=== PATIENT | female | born 1960 | race Caucasian/White ===

== ENCOUNTER → 2017-06-29 | Outpatient (CLI) | payer BC ==
--- NOTE | 2017-06-30 07:53 | MAMMOGRAPHY REPORT ---
BILATERAL DIGITAL SCREENING MAMMOGRAM TOMOSYNTHESIS WITH CAD: 06/29/2017 TECHNIQUE: Breast tomosynthesis in addition to standard 2D mammography was performed. Current study was also evaluated with a Computer Aided Detection (CAD) system. COMPARISON: Comparison is made to exams dated: 06/28/2016 mammogram, 06/24/2015 mammogram, 06/12/2014 mammogram, 06/06/2013 mammogram, 06/02/2012 mammogram, and 04/30/2011 mammogram - [facility]. BREAST COMPOSITION: The tissue of both breasts is heterogeneously dense, which may obscure small mas ses. FINDINGS: There is a 5 mm asymmetry seen within the right breast middle depth at approximately 9:00, which may represent normal fibroglandular tissue although spot compression tomosynthesis views and p ossible breast ultrasound are recommended further evaluation. The remainder of both breasts are stable compared to prior exams, without suspicious masses, calcific ations, or areas of architectural distortion noted. IMPRESSION: ACR BI-RADS CATEGORY 0: INCOMPLETE EVALUATION: NEED ADDITIONAL IMAGING EVALUATION Right breast asymmetry, for which additional imaging evaluation is recommended. The patient will be called to schedule an appointment. Approximately 10% of breast cancers are not detected with mammography. A negative mammographic report should not delay biopsy if a clinically suggestive mass is present. Naina Andre M.D. /:06/29/2017 16:32:27 [employer]el Power[employer] Supervisor: Luyc HURD)(Alexa), [facility] letter sent: Addl Imaging 0 BI-RADS Code: ACR BI-RADS Category 0: Incomplete Evaluation: Need Additional Imaging Evaluation
== END | disposition home or self-care (01) ==
LOC: C.MAMM 13:06
PROVIDERS: ATTEND Physician Assistant Medical
DX: Z12.31 Encounter for screening mammogram for malignant neoplasm of breast (principal); N64.89 Other specified disorders of breast

== ENCOUNTER → 2017-07-08 | Outpatient (CLI) | payer BC ==
--- NOTE | 2017-07-08 12:57 | MAMMOGRAPHY REPORT ---
UNILATERAL RIGHT DIGITAL DIAGNOSTIC MAMMOGRAM TOMOSYNTHESIS AND TARGETED RIGHT ULTRASOUND: 07/08/2017 CLINICAL HISTORY: Callback from screening mammogram for right breast asymmetry. TECHNIQUE: Breast tomosynthesis in addition to standard 2D mammography was performed. Spot compress ion right CC and MLO 2-D and tomosynthesis images were obtained. COMPARISON: Comparison is made to exams dated: 06/29/2017 mammogram, 06/28/2016 mammogram, 06/24/2015 m ammogram, 06/12/2014 mammogram, 06/06/2013 mammogram, and 06/02/2012 mammogram - [facility]. BREAST COMPOSITION: The tissue of the right breast is heterogeneously dense, which may obscure small masses. FINDINGS: Spot compression views of the right breast demonstrate a persistent nodular 7 mm asymmetry in the right breast along the posterior nipple line on the MLO view. No clear correlate is seen on the cc view. Targeted ultrasound was performed of the right breast in the region of the mammographic asymmetry see n on one view only, including the right subareolar breast as well as 3 and 9:00 breast. The breast t issue is markedly heterogeneous on ultrasound, which reduces the sensitivity of the exam. However, i n the right 3:00 subareolar breast, there is a focal hypoechoic 5 x 4 x 3 mm region. A BB was placed on the skin at the site of the sonographic finding and repeat right MLO and cc tomosynthesis images were obtained. A BB aligns with the asymmetry on the MLO view, indicating possible mammographic-sono graphic correlation. Although this could represent normal fibroglandular tissue, recommend ultrasoun d guided core needle biopsy for further evaluation, with post-clip mammograms to evaluate for mammogr aphic- sonographic concordance. IMPRESSION: ACR BI-RADS CATEGORY 4: SUSPICIOUS, TARGETED ULTRASOUND ACR BI-RADS CATEGORY 4: SUSPICIO US Persistent nodular asymmetry seen along the posterior nipple line in the right breast on the addition al spot compression views. A focal 5 mm hypoechoic region is seen within the right 3:00 subareolar b reast on ultrasound, which may correlate with the asymmetry. Recommend ultrasound guided core needle biopsy for further evaluation, with post-clip mammograms to evaluate for mammographic-sonographic co ncordance. A phone call was made to the physician's office to confirm faxed results were received. The patient has been verbally notified of the results. She tentatively scheduled the biopsy [facility]. Approximately 10% of breast cancers are not detected with mammography. A negative mammographic report should not delay biopsy if a clinically suggestive mass is present. Naina Andre M.D. ah/:07/08/2017 12:16:10 Supervisor Phosph[employer] Processing: Bibiana HURD)(Alexa), [facility] letter sent: Abnormal 4/5 BI-RADS Code: ACR BI-RADS Category 4: Suspicious Ultrasound BI-RADS: ACR BI-RADS Category 4: Suspici ous
== END | disposition home or self-care (01) ==
LOC: C.MAMM 10:57
PROVIDERS: ATTEND Physician Assistant Medical
DX: N64.9 Disorder of breast, unspecified (principal)

== ENCOUNTER → 2017-08-03 | Outpatient (CLI) | payer BC ==
[~2017-08-03] MED LIST: GADAVIST IV PRN
--- NOTE | 2017-08-04 14:40 | MAMMOGRAPHY REPORT ---
BREAST MRI OF BOTH BREASTS : 08/03/2017 CLINICAL HISTORY: Persistent nodular asymmetry seen in the right breast on one view during a recent d iagnostic workup. A possible correlate was seen within the right 3:00 breast on ultrasound. However , when the patient returned for ultrasound-guided biopsy, the finding did not clearly persist on ultr asound. Therefore, bilateral breast MRI was recommended. COMPARISON: Comparison is made to exams dated: 07/08/2017 ultrasound, 07/08/2017 mammogram, 7 mammogram, 07/19/2017 ultrasound, 06/28/2016 mammogram, and 06/24/2015 mammogram - [facility]. Technique: The patient was placed prone in a dedicated breast imaging coil. Precontrast axial T1-yusef ghted, axial T2-weighted fat saturation, and axial T1-weighted fat saturation images were obtained. After the administration of 7.5 mL of Gadavist IV contrast, sequential T1-weighted fat saturation bryan ges were obtained. Subtraction images were obtained of the dynamic contrast enhanced sequences, and 3-D reformations were performed. The SyMyn[employer] software was used for kinetic analysis. Findings: There is mild background parenchymal enhancement bilaterally. There are no suspicious enhancing mass es or areas of abnormal non-mass enhancement within either breast. Specifically, there is no enhanci ng mass or other suspicious abnormality within the area of the asymmetry seen within the right retroa reolar breast on the recent diagnostic mammograms or in the 3:00 right breast in the region of the fi nding seen on the prior ultrasound. Given the lack of corresponding MRI abnormality, the mammogram a nd ultrasound findings are considered benign. There is no evidence of axillary adenopathy. The chest wall structures are negative. Visualized ext ramammary soft tissues are grossly unremarkable. IMPRESSION: ACR BI-RADS CATEGORY 2: BENIGN No MRI evidence of malignancy in either breast. Specifically, there is no suspicious finding in the region of the right breast asymmetry seen on the recent diagnostic mammogram. Given the lack of nicho esponding MRI abnormality, the mammographic finding is considered benign and felt to represent normal fibroglandular tissue. Recommend return to routine annual mammogram screening schedule, due Tom Jean. Naina Andre M.D. /:08/03/2017 15:55:56 Engineer Intern: home health care social worker, [facility] letter sent: Normal 07/26 BI-RADS Code: ACR BI-RADS Category 2: Benign
== END | disposition home or self-care (01) ==
LOC: C.MRI 11:27
PROVIDERS: ATTEND Physician Assistant Medical
DX: R92.8 Other abnormal and inconclusive findings on diagnostic imaging of breast (principal)